=== PATIENT | male | born 1985 | race Caucasian/White ===

== ENCOUNTER 2023-11-20 09:54 | Emergency (ER) | payer OTHER, SELFPAY ==
--- NOTE | 2023-11-20 10:01 | ED.URI ---
HPI - URI/Sore Throat General Chief Complaint: Upper Respiratory Infection Stated Complaint: SORE THROAT Time Seen by Provider: 11/20/23 10:16 Source: patient Mode of arrival: ambulatory Limitations: no limitations History of Present Illness HPI Narrative: Simba is a 38-year-old male presents to the clinic today with complaints of a sore throat x2-3 days. He reports the pain is so severe is only been able tolerate warm liquids. He has been using cough drops and throat numbing spray for the pain. He also complains of some mild rhinorrhea and nasal congestion. He reports and kid have had similar symptoms. He denies any fevers/chills, cough, shortness breath, nausea, vomiting, or diarrhea. MD elicited complaint: sore throat and nasal congestion Related Data Allergies Allergy/AdvReac Type Severity Reaction Status Date / Time Cephalosporins Allergy Mild Unknown Verified 11/20/23 10:07 cefaclor Allergy Unknown Unknown Verified 11/20/23 10:07 Review of Systems Review of Systems: Pertinent positives per HPI. Patient denies any fever, chills, rash, visual changes, dizziness, cough, shortness of breath, chest pain, palpitations, nausea, vomiting, diarrhea, constipation, abdominal pain, or any urinary issues. PMFSH Family History Family History Other Hypertension Social History Social History Smoking status: Current every day smoker Alcohol intake: current Comments At the time of my signature, I reviewed and agree with the nursing past medical, surgical, social, and family history. There is no relevant family history pertinent to the patient complaint. Exam Narrative: General: Well-developed, well nourished, in no apparent distress Head: Normocephalic, atraumatic Eyes: Pupils equally round and reactive to light bilaterally, EOM intact, sclera and conjunctive clear, no discharge, lids normal Ears: TMs intact and clear, ear canals clear, no drainage, grossly hearing normal. Nose: Nares patent, no discharge, no inflammation, no sinus tenderness. Mouth: Oropharynx erythematous without exudates, bilateral tonsillar enlargement 2+, good dentition, MMM. Neck: Supple, trachea midline, enlargement of anterior cervical nodes and tenderness to palpation, no thyroid masses or goiter palpable. Cardio: Regular rate and rhythm, s1 and s2 normal, no murmur appreciated. Resp: Clear to auscultation bilaterally anteriorly and posteriorly, no rhonchi, rales, wheezing or rubs Course Course Emergency Course: Portions of this record may have been created with voice recognition software. Level of Care: Express Care Visit Vital Signs Vital signs: Vital signs reviewed MDM - URI/Sore Throat MDM Narrative Medical decision making narrative: At the time of visit patient is resting comfortably on the exam table. Patient appears to be nontoxic. Labs: Strep test was positive in the clinic today. Plan: I suspect the patient has Streptococcus pharyngitis. Prescription for amoxicillin was sent to the pharmacy and reviewed with the patient Supportive measures were discussed with the patient and they voiced understanding discharge instructions and agrees to treatment plan. Return precautions reviewed Differential Diagnosis Differential diagnosis: Likely upper respiratory infection, otitis media, sinusitis, viral infection, bronchitis, influenza, pharyngitis and other (COVID) Discharge Plan Discharge Clinical Impression: Strep pharyngitis Patient Disposition: Home, Self-Care Condition: Stable Instructions: Antibiotic Form, Strep Throat (ED) Additional Instructions: Strep test was positive in the clinic today. Change your toothbrush in 24 hours after initiation of the antibiotics Take prescription medications only as prescribed- Increase fluids and stay well hydrated Tylenol/motrin for pa
[2023-11-20 10:05] VITALS: BP 129/86; PULSE 88; RESP 16; TEMP 36.3; O2SAT 99
== END 2023-11-20 10:23 | disposition home or self-care (01) ==
PROVIDERS: Emergency Provider Nurse Practitioner Family
DX: J02.0 Streptococcal pharyngitis (principal); F17.200 Nicotine dependence, unspecified, uncomplicated
CPT/HCPCS: 87880; 99213; G0463

== ENCOUNTER 2025-04-04 08:26 | Outpatient (CLI) | payer OTHER, SELFPAY ==
--- OUTSIDE RECORDS SUMMARY | 2025-04-04 08:51 | XMS_ITS | Patient Health Record ---
Author Organization [facility] Address [address] [place] [place] [address] [address] [facility] [address] [place] [address] Care Team Providers Care Plant Buyer Name Role Phone Vaughn Womack Unavailable [phone] Reason For Referral No Information Social History Social History Additional Details Category Social Info Options Details Migrated Social History Migrated Social History Alcohol Intake: Occasional 02/01/2018,Tobacco Years: Current every day smoker 02/01/2018,Smoking Status: 02/01/2018 Plan Of Treatment No Information Insurance Providers Payer Name Payer Address Payer Phone Subscriber Number Group Number Insured Name Patient Relationship to Insured Coverage Start Date Coverage End Date [facility] [address] [place] [phone] [id number] JAYCEE COOK Self - patient is the insured
--- OUTSIDE RECORDS SUMMARY | 2025-04-04 08:51 | XMS_ITS | Clinical Summary ---
Author Organization [facility] [place] [address] Address [address] [place] [id number] Care Team Providers Care Owner Name Role Phone No, Physician Primary Care Provider [phone] Collin Harrison MD Unavailable [phone] Allergies Active Allergy Reactions Criticality Noted Date Comments Cefaclor Rash Reaction: Rash, Medications cyclobenzaprine (FLEXERIL) 10 mg tablet TK 1 T PO QHS PRF MUSCLE PAIN 0 9 Active ibuprofen (ADVIL,MOTRIN) 800 mg tablet TK 1 T PO Q 8 H PRF PAIN 0 9 Active amitriptyline (ELAVIL) 25 mg tablet 1 tab po qhs and after 1-2 weeks, increase to 2 tabs qhs 60 tablet 5 9 Active Additional Information Patient not taking.Reported on 03/08/2024 predniSONE (DELTASONE) 10 mg tablet Take 5 tabs (50mg) daily for 2 days, then take 4 tabs (40mg) daily for 2 days. Continue to decrease by 1 tab (10mg) every 2 days until gone. 30 tablet 4 Active triamcinolone (KENALOG) 0.1 % cream Apply to affected area 1-2 times daily as needed. Avoid face and groin. 30 g 4 Active Active Problems Problem Noted Date Diagnosed Date Vestibular migraine 07/12/2018 Fatigue 11/03/2013 Injury of finger 01/15/2012 Crushing injury of finger 12/11/2011 Surgical History Surgery Date Site/Laterality Comments HAND SURGERY Medical History Medical History Date Comments Spleen laceration Family History Medical History Relation Name Comments Hypertension Father Family history of hypertension - (Added by TW Conv) Migraines Father Heart disease Maternal Grandmother Migraines Mother Relation Name Status Comments Father Maternal Grandmother Mother Social History Tobacco Use Types Packs/Day Years Used Date Smoking Tobacco: Never Assessed Cigarettes Smokeless Tobacco: Never Alcohol Use Standard Drinks/Week Comments Yes 8 (1 standard drink = 0.6 oz pur e alcohol) Personal Safety Answer Date Recorded Have you ever been in or are you currently in a harmful physical or emotional relationship or is someone making you feel afraid or unsafe? 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 Not on file Not on file Not on file Last Filed Vital Signs Vital Sign Reading Time Taken Comments Blood Pressure 146/94 11/16/2024 9:30 PM CDT Pulse 78 11/16/2024 9:30 PM CDT Temperature 36.6 C (97.9 F) 11/16/2024 9:30 PM CDT Respiratory Rate 16 11/16/2024 9:30 PM CDT Oxygen Saturation 100% 11/16/2024 9:30 PM CDT Inhaled Oxygen Concentration - - Weight 101.7 kg (224 lb 3.2 oz) 11/16/2024 9:30 PM CDT Height 182.9 cm (6' 0.01) 03/08/2024 8:28 AM CS T Body Mass Index 30.4 03/08/2024 8:28 AM 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[employer]ER Plan of Treatment Health Maintenance Due Date Last Done Comments Depression Screening 1987 Hepatitis C Screening 1987 Varicella Vaccines (1 of 2 - 13+ 2-dose series) 11/17/2000 Hepatitis B Screening 11/17/2005 Regular Well Visit/Exam 18-64 11/17/2005 HPV Vaccines (1 - 3-dose SCD M series) 11/17/2014 Covid-19 Vaccine (2024-2 6 season) 2024 12/04/2020, 11/13/2020 Influenza Vaccine (#1) 2024 DTaP/Tdap/Td Vaccine (2 - Td or Tdap) 06/06/2029 06/06/2019 Pneumococcal vaccine <65 Aged Out No longer eligible based on patient's age to complete this topic [facility] CHO[place] [address] Care Teams Owner Relationship Specialty Start Date End Date No, Physician PCP - General 02/03/22 Collin Harrison MD Internal Medicine 02/03/22
--- NOTE | 2025-04-25 16:01 | P.SLEEP_ITS ---
Sleep Study - Home Unattended Date of Study: 04/04/25 Ordering Provider: Collin Harrison MD Interpreting Provider: Geena Rodgers, DO Home Sleep Study Type: Watch PAT Height: 1.85 m Weight: 96.162 kg Body Mass Index: 27.9 Neck Circumference (inches): 16.5 [place]: 7 Reason for Sleep Study Loud snoring and witnessed apneas Sleep History The patient is a 39-year-old male that had a sleep study ordered by his primary care physician for evaluation of sleep apnea. The patient denies awakening from sleep short of breath. He denies awakening at night with heartburn, belching or cough. He occasionally snores and is occasionally loud enough that others complain. He occasionally has trouble sleeping when he has a cold. He denies waking up gasping for air throughout the night. He occasionally has breathing problems at night observed by himself or others. He denies sweating excessively at night. He denies having heart palpitations or irregular heartbeats during the night. He occasionally falls asleep during the day but never while driving. He denies sleep paralysis, cataplexy and hypnagogic/ hypnopompic hallucinations. He denies having trouble at school or work due to sleepiness. He denies feeling afraid of going to sleep. He denies having nightmares. He occasionally remembers his dreams. He occasionally has thoughts racing through his mind. He denies feeling sad or depressed. He occasionally has anxiety. He rarely has muscular tension. He rarely notices parts of his body jerk. He rarely kicks during the night. He denies having crawling and aching feelings in his legs and denies having leg pain during the night. He denies grinding his teeth during sleep but occasionally awakens with morning jaw pain. He is rarely bothered by pain during the day but never awakened by pain during the night. He occasionally wakes up feeling stiff in the morning. He rarely wakes up with sore or achy muscles. He occasionally wakes up the pain in the neck, spine and other joints. He goes to bed at 9:30 p.m. on weekdays and at 10:30 p.m. on the weekends. It takes him 5-10 minutes to fall asleep. He wakes up 3 times throughout the night to urinate and is able to fall back asleep immediately. He wakes up at 6:00 a.m. on weekdays and at 5:30 a.m. on the weekends. He typically gets 8 hours of sleep per night. He will stay in bed for 30 minutes after waking up in the morning. He currently lives with his and 2 children. He denies consuming any caffeinated beverages within 2 hours of bedtime. He denies engaging in physical exercise before bedtime. He will watch television before falling asleep. He denies taking naps in afternoon or the evening. He consumes 2 caffeinated beverages per day. He quit smoking cigarettes 5 years ago. He denies alcohol and recreational drug use. FORMERLY [facility], [facility] Past Medical History Medical History Hypersomnolence Encounter for preventive health examination BMI 27.0-27.9,adult Follow up Elevated blood pressure reading without diagnosis of hypertension Hx of renal calculi Stress Encounter to establish care BMI 29.0-29.9,adult Diplopia Insomnia Contusion of neck Sore throat Pressure in head Neck pain Light headed Keratotic lesion Gastroesophageal reflux disease without esophagitis Cervical spondylosis with radiculopathy Benign paroxysmal positional vertigo of right ear Family History Family History Father Malignant neoplasm of prostate Hypertension Perforation of colon Mother Hypertension Hyperlipidemia Sibling Alive and well Social History Social History Smoking status: Former smoker (now using Zyn) Second hand tobacco smoke exposure: Yes Alcohol intake: current Lack of Transportation: No Lack of Food: Never True Current Housing: I Have Housing Concerned About Future Housing: No Difficulty Paying Gas/Electric Bills: No Difficulty Paying for Meds: No Currently Unemployed: No Difficulty w/ Childcare or Family Care: No Living arrangements: with family Occupation/Education: occupation Gender identity (if verbalized by the patient): Male Medications Home Medications ?Medication ?Instructions ?Recorded ?Confirmed ?Type No Home Medications 03/27/25 03/27/25 H istory Sleep Procedure The sleep study was completed using ZolpyT a technically adequate device with seven channels: peripheral arterial tone, actigraphy, body position, snore, respiratory movement, pulse oximetry, sleep staging, and heart rate. Prior to using the device, the patient received verbal and written instructions for its application and was provided with the help desk phone number for additional telephonic instruction with 24-hour availability of qualified personnel to answer questions. The study was scored using CMS guidelines. Sleep Architecture The total recording time is 7 hrs, 36 min. The total sleep time is 6 hrs, 54 min. Sleep latency is 25 minutes. REM latency is 40 minutes. The patient had 5 episodes of waking. Sleep architecture shows 20.9% deep sleep, 39.2% light sleep, and (as % Total Sleep Time) showed NREM (Light 39.2%; Deep 20.9%), and a 39.9% stage REM. The patient spent 31.0% of total sleep time in the supine position. Sleep efficiency was 90.79. Respiratory Analysis The overall AHI (pAHI 4%:) is 12.4. The overall AHI (pAHI 3%:) is 14.9. The central AHI is 4.1. The AHI was 17.9 in NREM and 10.6 in REM sleep. The AHI was 37.6 in Supine and 4.4 in Non-supine sleep. Percent of Edgard Moyer respirations is 0.0. Oximetry Data The oxygen desaturation index (PATSY 4%:) is 8.8. The mean saturation is 94%, and the lowest saturation is 85%. Time spent with saturation < 88% is 2.3 minutes. Snoring Profile Snoring average intensity is 41 dB. The patient snored above 45 decibels for 17.7 minutes, 4.3% of sleep time. Cardiac Profile The average pulse rate is 59 beats per minutes. The lowest pulse rate is 41 bpm. The highest pulse rate reported is 99 bpm. Atrial fibrillation was not detected. Premature beats occur <0.1 per minute. Assessment and Plan Assessment and Plan (1) MARIBEL (obstructive sleep apnea): Code(s): G47.33 - Obstructive sleep apnea (adult) (pediatric) Status: Acute Assessment and Plan: The patient had an overall AHI of 12.4 with desaturation down to 85%. This is consistent with mild sleep apnea. Due to the patient's insomnia, he qualifies for treatment. I recommend that the patient be prescribed AutoPAP 5-15 cm H2O, CPAP mask/filters/tubing and heated humidity. A mandibular advancement device is also an acceptable treatment option. This should be used with all episodes of sleep.? Compliance should be reviewed within 31-90 days of starting therapy for usage greater than 4 hours per night greater than 70% of the nights. The patient should be asked about symptoms such as?excessive daytime sleepiness, quality of sleep, decreased nocturia, increased?mental functioning such as memory, mood, and concentration. Data The data obtained during this sleep study is adequate for interpretation. Certification This sleep study has been reviewed by a board certified sleep medicine physician.
[2025-05-01 14:40] VITALS: BMI 27.9
== END 2025-04-05 12:15 | disposition home or self-care (01) ==
LOC: ANHCSM 08:27
PROVIDERS: PCP Internal Medicine; Visit Provider Internal Medicine
DX: G47.33 Obstructive sleep apnea (adult) (pediatric) (principal)
CPT/HCPCS: 95800